=== PATIENT | male | born 1965 | race Caucasian/White ===

== ENCOUNTER 2016-09-13 19:47 | Emergency (ER) | payer OTHER | END 2016-09-14 01:01 | disposition home or self-care (01) | LOC: FER 19:47 | DX: M19.042 Primary osteoarthritis, left hand (principal); K21.9 Gastro-esophageal reflux disease without esophagitis; F17.210 Nicotine dependence, cigarettes, uncomplicated; Z88.0 Allergy status to penicillin; Z79.899 Other long term (current) drug therapy | CPT/HCPCS: 73110; J1885 ==

== ENCOUNTER 2021-07-17 18:45 | Day surgery (SDCO) | payer OTHER ==
[~2021-07-17] VITALS: Ht 193 cm; Wt 117.3 kg
[2021-07-17 19:12] LABS: BASOPHIL 1.3 % (0-2); EOSINOPHIL 3.7 % (0-5); HCT 48.8 % (42.0-52.0); LYMPHOCYTE 16.8 % (15-48); MCH 29.5 pg (25.0-31.0); MCHC 34.8 g/dL (32.0-36.0); MCV 84.7 fL (78.0-100.0); MONOCYTE 10.2 % (0-12); MPV 10.8 fL (6.0-9.5); NEUTROPHIL 67.6 % (41-80); NRBC 0; PLT 232 K/uL (150-400); RBC 5.76 M/uL (4.70-6.00); RDW 12.6 % (11.5-14.0)
[2021-07-17 19:33] LABS: ALBUMIN 3.9 g/dL (3.4-5.0); BILIRUBIN - TOTAL 0.5 mg/dL (0.2-1.0); BUN/CREAT RATIO (CALC) 14.4 RATIO; CREATININE 1.18 mg/dL (0.67-1.17); GLOBULIN (CALCULATION) 3.7 g/dL; POTASSIUM 3.8 mmol/L (3.5-5.1); TOTAL PROTEIN 7.6 g/dL (6.4-8.2)
[2021-07-17 19:44] LABS: CORONAVIRUS 2019 SARS-COV-2 NEGATIVE (NEGATIVE); INFLUENZA A NAA NEGATIVE (NEGATIVE)
[2021-07-17 19:48] LABS: INR 1.13 (0.9-1.2); PROTHROMBIN TIME 13.9 SECONDS (11.8-13.4); PTT 25.8 SECONDS (24.4-34.7)
[2021-07-17 23:25] LABS: BILIRUBIN NEGATIVE (NEGATIVE); BLOOD NEGATIVE Ery/uL (NEGATIVE); CLARITY CLEAR (CLEAR); COLOR YELLOW (YELLOW); GLUCOSE (U) NORMAL (NORMAL); LEUKOCYTES NEGATIVE Leu/uL (NEGATIVE); NITRITE NEGATIVE (NEGATIVE); PROTEIN NEGATIVE (NEGATIVE)
[2021-07-18 06:17] LABS: BASOPHIL 0.4 % (0-2); EOSINOPHIL 0 % (0-5); HCT 43.3 % (42.0-52.0); HGB 15.1 g/dl (13.2-18.0); LYMPHOCYTE 11.5 % (15-48); MCH 29.8 pg (25.0-31.0); MCHC 34.9 g/dL (32.0-36.0); MCV 85.6 fL (78.0-100.0); MONOCYTE 4.3 % (0-12); NEUTROPHIL 83.4 % (41-80); NRBC 0; PLT 206 K/uL (150-400); RBC 5.06 M/uL (4.70-6.00); RDW 12.5 % (11.5-14.0); WBC 4.9 K/uL (4.0-10.5)
[2021-07-18 06:38] LABS: ALBUMIN 3.1 g/dL (3.4-5.0); BILIRUBIN - TOTAL 0.3 mg/dL (0.2-1.0); GLOBULIN (CALCULATION) 3.3 g/dL; TOTAL PROTEIN 6.4 g/dL (6.4-8.2)
[2021-07-19 07:03] LABS: BUN/CREAT RATIO (CALC) 9.5 RATIO; CREATININE 1.05 mg/dL (0.67-1.17); POTASSIUM 3.7 mmol/L (3.5-5.1)
[2021-07-20] MEDS ORDERED: PREDNISONE 20MG20 MG PO (07:35)
[2021-07-20] MEDS ORDERED: SPIRIVA RESPIMAT4 G1 INH (07:35)
[2021-07-20] MEDS ORDERED: VENTOLIN HFA IN18 GM INH (07:35)
[2021-07-20] MEDS ORDERED: ADVAIR HFA 230-28 GM INH (07:35)
--- NOTE | 2021-07-20 07:40 | NUR ---
94% RA SAT AFTER WALKING TO BR, DOING AM ADL'S AND WALKING BACK
[2021-07-20] MEDS ORDERED: DUONEB 2.5-0.5M1 AMP INH (08:23)
--- NOTE | 2021-07-20 11:48 | NUR ---
07/20/21 Mr. Rodriguez lives alone. 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 He does not have health insurance of a PCP. An appointment has been scheduled with Ms. Elzbieta NP, by the [employer] [facility]. The Certified Massage Therapist has made application for a Medicaid which will on August 22. - Mr. Rodriguez was educated to [place] and [facility]. He was also given a list of financial community resources.
== END 2021-07-20 12:00 | disposition home or self-care (01) ==
LOC: FER 18:45 → FMS 20:39
PROVIDERS: Allergy & Immunology Allergy; Internal Medicine; Nurse Practitioner; ADMIT Internal Medicine
DX: J44.9 Chronic obstructive pulmonary disease, unspecified (principal); J45.901 Unspecified asthma with (acute) exacerbation; I25.2 Old myocardial infarction; F17.210 Nicotine dependence, cigarettes, uncomplicated; N17.9 Acute kidney failure, unspecified; R00.0 Tachycardia, unspecified; E86.0 Dehydration; Z88.0 Allergy status to penicillin; Z86.73 Personal history of transient ischemic attack (TIA), and cerebral infarction without residual deficits; Z90.49 Acquired absence of other specified parts of digestive tract; Z95.5 Presence of coronary angioplasty implant and graft; Z20.822 Contact with and (suspected) exposure to COVID-19
CPT/HCPCS: 36415; 71250; 80048; 80053; 81003; 83605; 83690; 83735; 83880; 84145; 84484; 85025; 85610; 85730; 93005; 94010; 94640; 94760; G0378; J1100; J1650; J1885; J2405; J2765; J3475; J7030; J7512; U0002

== ENCOUNTER → 2021-08-31 | Day surgery (SDC) | payer SELFPAY ==
[~2021-08-31] VITALS: Ht 193 cm; Wt 117.3 kg
[~2021-08-31] MED LIST: ADVAIR HFA 230-28 GM INH; ASPIRIN EC81 MG PO; DUONEB 2.5-0.5M1 AMP INH; PREDNISONE 20MG20 MG PO; SPIRIVA RESPIMAT4 G1 INH; VENTOLIN HFA IN18 GM INH
== END | disposition home or self-care (01) ==
LOC: FAS 09:03
DX: Z12.11 Encounter for screening for malignant neoplasm of colon (principal); D12.5 Benign neoplasm of sigmoid colon; D12.3 Benign neoplasm of transverse colon; D12.8 Benign neoplasm of rectum; Z86.010 Personal history of colon polyps; I10 Essential (primary) hypertension; E78.5 Hyperlipidemia, unspecified; I25.2 Old myocardial infarction; J44.9 Chronic obstructive pulmonary disease, unspecified; Z87.891 Personal history of nicotine dependence; Z79.82 Long term (current) use of aspirin; Z88.0 Allergy status to penicillin; Z79.899 Other long term (current) drug therapy; Z95.5 Presence of coronary angioplasty implant and graft; Z86.73 Personal history of transient ischemic attack (TIA), and cerebral infarction without residual deficits
CPT/HCPCS: J1610; J2704; J7120

== ENCOUNTER 2021-09-22 10:02 | Emergency (ER) | payer OTHER ==
[2021-09-22 10:56] LABS: BASOPHIL 1.6 % (0-2); EOSINOPHIL 3.2 % (0-5); HCT 50.3 % (42.0-52.0); HGB 17.1 g/dl (13.2-18.0); LYMPHOCYTE 36.8 % (15-48); MCH 29.3 pg (25.0-31.0); MCV 86.3 fL (78.0-100.0); MPV 10.4 fL (6.0-9.5); NEUTROPHIL 40.8 % (41-80); NRBC 0; PLT 204 K/uL (150-400); RBC 5.83 M/uL (4.70-6.00); RDW 12.6 % (11.5-14.0); WBC 4.9 K/uL (4.0-10.5)
[2021-09-22 11:20] LABS: ALBUMIN 3.6 g/dL (3.4-5.0); BILIRUBIN - TOTAL 0.4 mg/dL (0.2-1.0); BUN/CREAT RATIO (CALC) 13.3 RATIO; CREATININE 1.13 mg/dL (0.67-1.17); GLOBULIN (CALCULATION) 3.5 g/dL; POTASSIUM 3.9 mmol/L (3.5-5.1); TOTAL PROTEIN 7.1 g/dL (6.4-8.2)
[2021-09-22 11:22] LABS: LACTIC ACID 0.8 mmol/L (0.4-1.9)
[2021-09-22 11:33] LABS: CORONAVIRUS 2019 SARS-COV-2 NEGATIVE (NEGATIVE); INFLUENZA A NAA NEGATIVE (NEGATIVE)
[2021-09-22] MEDS ORDERED: MEDROL 4MG DOSEP4 MG PO (11:43)
[2021-09-22] MEDS ORDERED: VENTOLIN HFA IN18 GM INH (11:43)
== END 2021-09-22 15:49 | disposition home or self-care (01) ==
LOC: FER 10:02
PROVIDERS: Emergency Medicine
DX: J44.1 Chronic obstructive pulmonary disease with (acute) exacerbation (principal); F17.200 Nicotine dependence, unspecified, uncomplicated; Z20.822 Contact with and (suspected) exposure to COVID-19; Z28.310 Unvaccinated for COVID-19
CPT/HCPCS: 36415; 71045; 80053; 83605; 84145; 84484; 85025; 87040; 93005; J0692; J2930; J3475; J7030; J7050; U0002